=== PATIENT | female | born 2000 | race Hispanic/Latino ===

== ENCOUNTER 2022-11-18 10:54 | Inpatient (IN) | payer OTHER ==
[2022-11-18 11:15] VITALS: BMI 32.1
[2022-11-18] MEDS ORDERED: NS w/ Oxytocin 30 units 500 ML ONE (12:52)
[2022-11-18] MEDS ORDERED: fentaNYL/Ropivacaine Epidural 100 ML ONE (12:52)
[2022-11-18] MEDS ORDERED: Butorphanol Tartrate 1 MG/ML VIAL SLOW IVP PRN (13:00)
[2022-11-18] MEDS ORDERED: Lactated Ringer's 1,000 ML IV SCH ×2 (13:00→13:45)
[2022-11-18] MEDS ORDERED: Acetaminophen 500 MG TAB PO PRN ×2 (13:00→13:34)
[2022-11-18 13:23] LABS: Mean Corpuscular HGB CONC 33.4 g/dL (32.0-36.0); Mean Corpuscular Hemoglobin 28.9 pg (27.0-33.0); Mean Corpuscular Volume 86.6 fl (81.6-98.3); Mean Platelet Volume 10.9 fl (7.4-10.4); Platelet Count 267 10x3/uL (150-450); RBC Distribution Width 13.7 % (11.5-14.5)
[2022-11-18] MEDS ORDERED: Tranexamic Acid 1,000 MG/10 ML VIAL IVP PRN (13:34)
[2022-11-18] MEDS ORDERED: Ondansetron PF 4 MG/2 ML Vial IVP PRN ×4 (13:34→23:50)
[2022-11-18] MEDS ORDERED: Misoprostol 200 MCG TAB PR PRN (13:34)
[2022-11-18] MEDS ORDERED: Lidocaine 1% (PF) 30 ML VIAL SC PRN (13:34)
[2022-11-18] MEDS ORDERED: fentaNYL 50 mcg/mL 1 mL Vial SLOW IVP PRN (13:34)
[2022-11-18] MEDS ORDERED: Methylergonovine 0.2 MG/ML VIAL IM PRN (13:34)
[2022-11-18] MEDS ORDERED: Promethazine HCl 25 MG/ML VIAL IM PRN ×2 (13:34→14:04)
[2022-11-18] MEDS ORDERED: Ibuprofen 800 MG TAB PO PRN (13:34)
[2022-11-18] MEDS ORDERED: Diphenoxylate HCl/Atropine Tablet PO PRN (13:34)
[2022-11-18] MEDS ORDERED: hydrALAZINE 20 MG/ML VIAL SLOW IVP PRN ×2 (13:34→23:50)
[2022-11-18] MEDS ORDERED: HYDROcodone/Acetaminophen 5/325 mg Tablet PO PRN (13:34)
[2022-11-18] MEDS ORDERED: Carboprost 250 MCG/ML AMP IM PRN (13:34)
[2022-11-18] MEDS ORDERED: NS w/ Oxytocin 30 units 500 ML IV SCH ×4 (13:45→23:59)
[2022-11-18 13:53] LABS: Syphilis Antibody Nonreactive (Nonreactive); Syphilis Antibody Index 0.03 S/CO (<1.00 Non-Reactive)
[2022-11-18] MEDS ORDERED: Naloxone HCl 0.4 mg/ml Vial IVP PRN ×2 (14:04)
[2022-11-18] MEDS ORDERED: Acetaminophen 325 MG TAB PO PRN (14:04)
[2022-11-18] MEDS ORDERED: Lactated Ringer's 500 ML IV PRN (14:04)
[2022-11-18] MEDS ORDERED: diphenhydrAMINE 50 MG/ML VIAL IVP PRN (14:04)
[2022-11-18] MEDS ORDERED: Moisturizing Cream (Eucerin) 113 GM JAR TOP PRN (14:04)
[2022-11-18] MEDS ORDERED: ePHEDrine Sulfate 50 MG/10 ML VIAL SLOW IVP PRN (14:04)
[2022-11-18 14:05] LABS: Amphetamine Not Detected (NotDetected); Barbiturates Screen Not Detected (NotDetected); Benzodiazepine Screen Not Detected (NotDetected); Cocaine Metabolite Screen Not Detected (NotDetected); Methadone Not Detected (NotDetected); Methamphetamine Not Detected (NotDetected); Opiate Screen Not Detected (NotDetected); Oxycodone Screen Not Detected (NotDetected); Phencyclidine (PCP) Not Detected (NotDetected); THC/Cannabinoid Screen Not Detected (NotDetected); Tricyclic Screen Not Detected (NotDetected)
[2022-11-18] MEDS ORDERED: fentaNYL 2 mcg/Ropivacaine 0.2% Epidural 100 ML CADD EPIDURAL SCH (14:15)
[2022-11-18] MEDS ORDERED: Communication Order-Pharmacy FS SCH (14:15)
[2022-11-18 15:00] LABS: HBSAg Index 0.18 S/CO (0-0.99); Hep B Surf Ag - L&D Non-Reactive S/CO (NonReactive)
[2022-11-18] MEDS ORDERED: Lanolin Ointment 7 GM TUBE TOP PRN (23:50)
[2022-11-18] MEDS ORDERED: Bisacodyl 10 MG SUPP PR PRN (23:50)
[2022-11-18] MEDS ORDERED: diphenhydrAMINE 25 MG CAP PO PRN (23:50)
[2022-11-18] MEDS ORDERED: Boostrix 0.5 ML (Tdap) VIAL (>/=7 yrs of age) IM ONE (23:50)
[2022-11-18] MEDS ORDERED: Benzocaine-Menthol 82.5 ML CAN TOP PRN (23:50)
[2022-11-18] MEDS ORDERED: Milk Of Magnesia 30 ML UDCUP PO PRN (23:50)
[2022-11-19] MEDS: Ibuprofen 800 MG TAB PO SCH ×3 (05:49→20:55)
[2022-11-19] MEDS: Ferrous Sulfate 325 MG TAB PO SCH ×2 (07:15→18:16)
[2022-11-19] MEDS: Prenatal Vitamin 1 TAB PO SCH (07:58)
[2022-11-19] MEDS: Docusate 100 MG CAP PO SCH ×2 (07:59→20:53)
[2022-11-19] MEDS ORDERED: Ibuprofen 800 MG TAB PO SCH (08:00)
[2022-11-19] MEDS: HYDROcodone/Acetaminophen 5/325 mg Tablet PO PRN ×2 (17:13→20:53)
[2022-11-20] MEDS: Ibuprofen 800 MG TAB PO SCH ×2 (05:30→14:50)
[2022-11-20] MEDS: HYDROcodone/Acetaminophen 5/325 mg Tablet PO PRN (05:46)
[2022-11-20] MEDS: Ferrous Sulfate 325 MG TAB PO SCH (07:14)
[2022-11-20] MEDS: Docusate 100 MG CAP PO SCH (07:34)
[2022-11-20] MEDS: Prenatal Vitamin 1 TAB PO SCH (07:34)
[2022-11-20 08:08] VITALS: BP 125/74; TEMP 98.7
== END 2022-11-20 17:00 | disposition home or self-care (01) | DRG 807 ==
LOC: CSHLD 10:54 → CSHPP 23:28
PROVIDERS: ADMIT Family Medicine; ATTEND Family Medicine
PROC: 10E0XZZ Delivery of Products of Conception, External Approach (ICD-10-PCS; principal; 2022-11-19)
PROC: 10907ZC Drainage of Amniotic Fluid, Therapeutic from Products of Conception, Via Natural or Artificial Opening (ICD-10-PCS; 2022-11-19)
DX: O80 Encounter for full-term uncomplicated delivery (principal); Z37.0 Single live birth; Z3A.38 38 weeks gestation of pregnancy
CPT/HCPCS: 51702; 80306; 85027; 86780; 86850; 86900; 86901; 87340; J2590